=== PATIENT | female | born 1950 | race Caucasian/White ===

== ENCOUNTER → 2018-12-07 09:12 | Outpatient (CLI) | payer MEDICARE, BC ==
[~2018-12-07 09:12] MED LIST: CARBATROL100 MG PO; CITRACAL + D E1 EACH PO; CO Q-10100 MG PO; FISH OIL 1,0001 CA1 PO; LEVO-T88 MCG PO; VITAMIN D10000 UNI1 PO
[2019-01-18 09:25] VITALS: BMI 27.6
== END | disposition home or self-care (01) ==
LOC: D.US 11-29 13:00
PROVIDERS: ATTEND Surgery
DX: I83.813 Varicose veins of bilateral lower extremities with pain (principal)